=== PATIENT | male | born 1990 | race Caucasian/White ===

== ENCOUNTER 2017-02-16 17:01 | Emergency (ER) | payer BC ==
[2017-02-16] MEDS ORDERED: OXYCODONE-ACETAMINOPHEN 5-325 MG TABLET PO ONE (17:48)
[2017-02-16] MEDS ORDERED: SULFAMETHOXAZOLE/TRIMETHOPRIM 800-160 MG TABLET PO ONE (17:48)
--- NOTE | 2017-02-16 17:53 | ER Document Report ---
HPI - HPI Patient complains to provider of: eyelid swelling Onset: Other - 2 days Onset/Duration: Worse Quality of pain: Sharp Pain Level: 5 Context: Patient complains of left lower eyelid swelling for the past 2 days. Patient was seen at an urgent care yesterday and prescribed clindamycin. Patient states since starting the antibiotic he has had 2 episodes of diarrhea yesterday with one episode of diarrhea today. Patient does not wear any glasses or contact lenses. Patient denies any fever. Associated Symptoms: Other - Left lower eyelid swelling. denies: Fever Exacerbated by: Denies Relieved by: Denies Similar symptoms previously: No Recently seen / treated by doctor: Yes - yesterday at urgent care - ROS ROS below otherwise negative: Yes Systems Reviewed and Negative: Yes All other systems reviewed and negative - CONSTITUTIONAL Constitutional: DENIES: Fever, Chills - EENT EENT: REPORTS: Eye problems - GASTROINTESTINAL Gastrointestinal: REPORTS: Patient vomiting - 1, Diarrhea - 2 yesterday, 1 today. DENIES: Abdominal Pain - MUSCULOSKELETAL Musculoskeletal: DENIES: Back Pain - DERM Skin Color: Erythema - Left lower eyelid Skin Problems: None Past Medical History - General Information source: Patient, Parent - Social History Smoking Status: Current Every Day Smoker Frequency of alcohol use: Occasional Drug Abuse: None Occupation: [employer] Lives with: Family Family History: Reviewed & Not Pertinent Patient has suicidal ideation: No Patient has homicidal ideation: No - Medical History Medical History: Negative Renal/ Medical History: Denies: Hx Peritoneal Dialysis Past Surgical History: Reports: Other - wart removal Vertical Provider Document - CONSTITUTIONAL Agree With Documented VS: Yes Exam Limitations: No Limitations General Appearance: WD/WN, No Apparent Distress - INFECTION CONTROL TRAVEL OUTSIDE OF THE [place] IN LAST 30 DAYS: No - HEENT HEENT: Atraumatic, Normocephalic. negative: Pharyngeal Exudate, Pharyngeal Tenderness Notes: Abscess to left lower eyelid that appears to be pointing PERRL, extraocular movements intact, left eye tearing, sclera clear with mild crusting noted eyelashes of left lower eyelid. - NECK Neck: Normal Inspection - RESPIRATORY Respiratory: Breath Sounds Normal, No Respiratory Distress O2 Sat by Pulse Oximetry: 97 - CARDIOVASCULAR Cardiovascular: Regular Rate, Regular Rhythm, No Murmur - MUSCULOSKELETAL/EXTREMETIES Musculoskeletal/Extremeties: MAEW - NEURO Level of Consciousness: Awake, Alert, Appropriate Motor/Sensory: No Motor Deficit - DERM Integumentary: Warm, Dry, Abscess - Left lower eyelid Course - Re-evaluation Re-evalutation: 02/16/17 17:[address] Garcia, Dr Garcia bedside for examination. Recommends incision and drainage with a needle, treating patient with topical Bactroban and prescribing Bactrim 2 tablets twice a day for 5 days. Recommends discontinuing clindamycin. - Vital Signs Vital signs: Temp Pulse Resp BP Pulse Ox 98.5 F 80 138/84 H 97 02/16/17 17:07 02/16/17 17:07 02/16/17 17:07 02/16/17 17:07 Procedures - Eye Procedure Left Eyes picture: 1 - Abscess to left lower eyelid that measured about 1.3 cm diameter - Incision and Drainage Left Face Type: Simple I&D procedure: Other - Alcohol prep pad Incision Method: Incision made with needle Amount/type of drainage: moderate amount of purulent drainage followed by small amount of bloody emiliano Eyes picture: 1 - Incision made with 18-gauge needle to pointing abscess Discharge - Discharge Clinical Impression: Encounter for incision and drainage procedure Eyelid abscess Qualifiers: Laterality: left Qualified Code(s): H00.036 - Abscess of eyelid left eye, unspecified eyelid Condition: Stable Disposition: HOME, SELF-CARE Instructions: Post Incision and Drainage, Oral Narcotic Medication ([facility]), Trimethoprim-Sulfa ([facility]), Abscess ([facility]), Warm Packs ([facility]) Additional Instructions: Return immediately for any new or worsening symptoms Followup with your primary care provider, call tomorrow to make a followup appointment Follow up with an cripple chaser for further evaluation, call Sunday for an appointment Apply warm compresses frequently to the eye Apply ointment only to the skin of the eyelid, do not put topical medication in the eye Prescriptions: Mupirocin [Bactroban 2% Ointment 22 gm] 1 applic TP TID #22 gm Oxycodone HCl/Acetaminophen [Percocet 5-325 mg Tablet] 1 tab PO ASDIR PRN #12 tablet PRN Reason: Sulfamethoxazole/Trimethoprim [Bactrim Ds Tablet] 2 each PO BID #20 tablet Forms: Return to Work Referrals: TOM WALLACE DO [ACTIVE STAFF] - Follow up as needed OFFICE [facility] [Provider Group] - Follow up as needed
[2017-02-16 18:51] VITALS: BP 130/82
== END 2017-02-16 19:35 | disposition home or self-care (01) ==
LOC: ER 17:01
PROC: 0H91XZZ Drainage of Face Skin, External Approach (ICD-10-PCS; principal; 2017-02-16)
DX: H00.036 Abscess of eyelid left eye, unspecified eyelid (principal); R19.7 Diarrhea, unspecified; R11.10 Vomiting, unspecified; F17.200 Nicotine dependence, unspecified, uncomplicated
CPT/HCPCS: 99283